=== PATIENT | female | born 1995 | race Caucasian/White ===

== ENCOUNTER 2018-07-15 21:08 | Observation (INO) ==
[2018-07-15] MEDS ORDERED: ALBUT/IPRATROP 3MG/0.5MG NEB 3 ML VIAL NEB STA (21:26)
[2018-07-15] MEDS ORDERED: BENZONATATE 100 MG CAPSULE PO ONE (22:04)
[2018-07-15] MEDS ORDERED: SODIUM CHLORIDE 0.9% 1000ML 1,000 ML IV SCH (22:15)
--- NOTE | 2018-07-15 22:16 | XRay Report ---
XR chest 1V portable HISTORY: cough COMPARISON: None. FINDINGS: The lungs are clear. Cardiac silhouette is normal in size. No pleural effusions. No pneumot horax. IMPRESSION: No acute process. Electronically signed by: John Hooker M.D. 07/15/2018 10:15 PM
--- NOTE | 2018-07-15 22:19 | Emergency Department Note ---
History of Present Illness General Chief complaint: Asthma Stated complaint: ASTHMA Time Seen by Provider: 07/15/18 21:19 History of Present Illness Maximum Pain Intensity: 6 This is a 22-year-old female with a history of asthma that presents to the emergency department via private vehicle with complaints of "asthma". The patient notes that for the past few days she has been experiencing increased cough and chest tightness. She was seen at [facility] yesterday and was given a rescue inhaler to use every 4 hours. She is also using Symbicort. Over the night she developed worsening symptoms therefore prompting a visit back to [facility] today. She was given a nebulizer. She is used it twice today. She notes that she is getting worse, now is a headache, nasal congestion and sore throat. Discomfort is worse when she lies flat. She denies any fevers, chills, history of clots. No recent long trips. She numerically rates the overall discomfort as a 6/10. Pt. notes her father has a hx of factor 5 and PE history and she is on control. Home Medications Home Medications Medication Instructions Recorded Confirmed Type albuterol sulfate 1.25 mg INHALATION QID PRN 07/15/18 07/15/18 History albuterol sulfate [Ventolin HFA] 2 puff INHALATION Q4 PRN 07/15/18 07/15/18 History budesonide-formoterol [Symbicort] 2 puff INHALATION BID 07/15/18 07/15/18 History norelgestromin-ethin.estradiol 1 patch TRANSDERMAL Q7D #0 ea 07/16/18 07/15/18 Rx [Xulane] oseltamivir 75 mg PO BID 5 Days #8 cap 07/16/18 Rx prednisone 10 mg PO UD #15 tab 07/16/18 Rx Allergies Allergy/AdvReac Type Severity Reaction Status Date / Time oats Allergy Swelling Verified 07/15/18 21:48 of the Eye sulfamethoxazole AdvReac Dizziness Verified 07/15/18 21:48 [From Bactrim] trimethoprim [From Bactrim] AdvReac Dizziness Verified 07/15/18 21:48 Past Med/Surg History Medical History Asthma Surgical History No pertinent past surgical history Social History Current Living Situation: Other Current Living Situation Comment: [facility] with 2 roommates Other Information That Helps Us Care for You: No Feels Safe at Home: Yes Safety Concerns: Feels Safe At This Time Smoking Status: Never smoker Hx Alcohol Use: Yes Alcohol type: wine Alcohol Intake Frequency: a few times a month Hx Substance Use: No Beliefs That Will Affect Care: None Preferred Language: Czech Review of Systems A total of 10 systems reviewed and were otherwise negative Physical Exam Vital Signs Vital Signs - 24 hr 07/16/18 02:10 07/16/18 03:01 07/16/18 03:22 Temperature 37.5 C Temperature Source Oral Pulse Rate 102 H Pulse Rate [Apical] 97 H 109 H Pulse Rate [Right Brachial] Pulse Rhythm [Apical] Regular Regular Pulse Strength [Apical] Normal Normal Respiratory Rate 16 18 18 Respiratory Effort / Characteristics Non-Labored Spontaneous Non-Labored Spontaneous Respiratory Depth Normal Normal Respiratory Pattern Regular Blood Pressure 132/82 Blood Pressure [Right Arm] 132/82 108/71 Blood Pressure Mean [Right Arm] 98 83 Blood Pressure Position [Right Arm] Lying Pulse Oximetry 98 98 96 Oxygen Delivery Method Room Air Room Air Room Air 07/16/18 07:35 07/16/18 08:45 07/16/18 15:00 Temperature 36.8 C 36.7 C Temperature Source Oral Oral Pulse Rate Pulse Rate [Apical] Pulse Rate [Right Brachial] 89 105 H Pulse Rhythm [Apical] Pulse Strength [Apical] Respiratory Rate 18 23 Respiratory Effort / Characteristics Non-Labored Respiratory Depth Normal Respiratory Pattern Regular Blood Pressure Blood Pressure [Right Arm] 121/84 120/80 Blood Pressure Mean [Right Arm] 96 93 Blood Pressure Position [Right Arm] Semi-fowlers Pulse Oximetry 99 98 Oxygen Delivery Method Room Air Room Air 07/16/18 15:41 Temperature 36.7 C Temperature Source Pulse Rate Pulse Rate [Apical] Pulse Rate [Right Brachial] 105 H Pulse Rhythm [Apical] Pulse Strength [Apical] Respiratory Rate 23 Respiratory Effort / Characteristics Respiratory Depth Respiratory Pattern Blood Pressure Blood Pressure [Right Arm] 120/80 Blood Pressure Mean [Right Arm] Blood Pressure Position [Right Arm] Pulse Oximetry 98 Oxygen Delivery Method VITAL SIGNS - Vital signs and nursing notes were reviewed. Patient is tachycardic upon arrival here. Otherwise vital signs are stable. GENERAL -22-year-old female appearing her stated age who is in no acute distress. She is not in the tripod position, and does not show any increased work of breathing. She is speaking in full sentences. Communicates well with provider and answers questions appropriately. SKIN - Without rashes. No meningeal or petechial rash. HEAD - NC/AT. EYES - PERRL with EOMI bilaterally. Sclera anicteric. Palpebral conjunctiva pink and moist with no injection noted. EARS - No deformities of external structures noted on gross examination bilaterally.External auditory canals without discharge or otorrhea. Tympanic membranes pearly garcia without retraction or bulging. No fluid or purulent material visualized behind the TM. Handle of malleus, umbo, cone of light, pars tensa/flaccid all easily visualized. NOSE - Midline and without cyanosis. No epistaxis or purulent drainage noted. Septum midline without deviation or septal hematoma noted. MOUTH/OROPHARYNX - Without perioral cyanosis. Buccal mucosa pink and moist and without leukoplakia. Tongue midline with equal elevation of palate bilaterally. No tonsillar hypertrophy, erythema, or exudates noted. Fair dentition noted. NECK - Neck with FROM. Supple to palpation. No lymphadenopathy noted. No nuchal rigidity. LUNGS - Chest wall symmetric without accessory muscle use, intercostals retractions, or central cyanosis. Normal vesicular breath sounds CTA B/L. No wheezes, rales, or rhonchi appreciated. CARDIAC - RRR with S1/S2. No murmur, rubs, or gallops appreciated. ABDOMEN - Abdominal contour normal without pulsations or visible masses. BS normoactive all four quadrants. No tenderness, palpable masses, hepatosplenomegaly, or ascites noted. EXTREMITIES - No clubbing or peripheral cyanosis. No pretibial edema present.+5/ 5 strength noted in UE/LE bilaterally. No calf tenderness. NEUROLOGIC - Cranial nerves II through XII grossly intact. PSYCH - A&Ox3 and cooperates fully with examiner. Pt is very pleasant and interacts well with examiner. Course Administered Medications Discontinued Medications Acetaminophen (Tylenol) 650 mg PO Q4H PRN PRN Reason: pain/fever Stop: 08/15/18 02:30 Last Admin: 07/16/18 03:58 Dose: 650 mg Albuterol (Duoneb) 3 ml NEB NOW STA Stop: 07/15/18 21:27 Last Admin: 07/15/18 21:35 Dose: 3 ml Benzonatate (Tessalon Perle) 100 mg PO NOW ONE Stop: 07/15/18 22:05 Last Admin: 07/15/18 22:38 Dose: 100 mg Budesonide/Formoterol Fumarate (Symbicort 80mcg/4.5mcg) 2 puffs INH BID MADDY Stop: 08/15/18 08:59 Last Admin: 07/16/18 08:48 Dose: 2 puffs Sodium Chloride (Nss 1000ml) 1,000 mls @ 999 mls/hr IV .Q1H1M MADDY Stop: 07/15/18 23:15 Last Infusion: 07/15/18 23:45 Dose: 0 mls/hr Admin: 07/15/18 22:38 Dose: 999 mls/hr Potassium Chloride (K Nick / Wtr) 10 meq in 100 mls @ 100 mls/hr IV ONE ONE Stop: 07/16/18 01:59 Last Infusion: 07/16/18 02:09 Dose: 0 mls/hr Admin: 07/16/18 01:05 Dose: 100 mls/hr Ioversol (Optiray 320 125ml) 125 ml IV ONCE PRN PRN Reason: Interaction Checking Stop: 07/20/18 00:00 Last Admin: 07/16/18 00:01 Dose: 96 ml Menthol (Nice) Confirm Administered Dose 24 niles BUCCAL .STK-MED ONE Stop: 07/16/18 03:58 Last Admin: 07/16/18 03:58 Dose: 24 niles Miscellaneous (Order Awaiting Action) 1 ea N/A QS MADDY Stop: 08/15/18 07:59 Last Admin: 07/16/18 09:00 Dose: Not Given Oseltamivir Phosphate (Tamiflu) 75 mg PO BID MADDY Stop: 07/21/18 04:38 Last Admin: 07/16/18 15:47 Dose: 75 mg Admin: 07/16/18 05:07 Dose: 75 mg Potassium Chloride (Klor-Con M10) 20 meq PO NOW STA Stop: 07/16/18 01:01 Last Admin: 07/16/18 01:04 Dose: 20 meq Medical Decision Making Laboratory Data Result diagrams: 07/15/18 22:20 07/16/18 08:11 Lab Results 07/15/18 07/15/18 07/15/18 Range/Units 22:20 22:20 22:20 WBC 6.09 (4.8-10.8) K/uL RBC 4.58 (4.2-5.4) M/uL Hgb 13.5 (12.0-16.0) g/dL Hct 40.1 (37-47) % MCV 87.6 (80-100) fL MCH 29.5 (25-34) pg MCHC 33.7 (32-36) g/dL RDW Std Deviation 41.9 (36.4-46.3) fL RDW Coeff of Ric 13.1 (11.5-14.5) % Plt Count 244 (130-400) K/uL MPV 9.4 (7.4-10.4) fL Immature Gran % (Auto) 0.2 % Neut % (Auto) 63.5 % Lymph % (Auto) 27.8 % Blanco % (Auto) 6.9 % Eos % (Auto) 1.3 % Baso % (Auto) 0.3 % Immature Gran # (Auto) 0.01 (0.00-0.02) K/uL Neut # (Auto) 3.87 (1.4-6.5) K/uL Lymph # (Auto) 1.69 (1.2-3.4) K/uL Blanco # (Auto) 0.42 (0.11-0.59) K/uL Eos # (Auto) 0.08 (0-0.5) K/uL Baso # (Auto) 0.02 (0-0.2) K/uL D-Dimer 710 H* (0-500) ug/L FEU Sodium 138 (136-145) mmol/L Potassium 3.0 L (3.5-5.1) mmol/L Chloride 105 (98-107) mmol/L Carbon Dioxide 27 (21-32) mmol/L Anion Gap 6.0 (3-11) BUN 7 (7-18) mg/dl Creatinine 0.73 (0.6-1.2) mg/dl Est Cr Clr Drug Dosing 125.9 ml/min Est GFR ( Amer) 137.4 Est GFR (Non-Af Amer) 118.6 BUN/Creatinine Ratio 9.1 L (10-20) Glucose 113 H (70-99) mg/dl Calcium 8.3 L (8.5-10.1) mg/dl Total Bilirubin 0.2 (0.2-1) mg/dl AST 11 L (15-37) U/L ALT 15 (12-78) U/L Alkaline Phosphatase 52 (45-117) U/L Troponin I < 0.015 (0-0.045) ng/ml Total Protein 7.1 (6.4-8.2) gm/dl Albumin 3.1 L (3.4-5.0) gm/dl Globulin 4.0 (2.5-4.0) gm/dl Albumin/Globulin Ratio 0.8 L (0.9-2) HCG, Qual (Negative) Influenza Type A Ag (Neg) Influenza Type B Ag (Neg) 07/15/18 07/15/18 07/16/18 Range/Units 22:20 22:20 08:11 WBC (4.8-10.8) K/uL RBC (4.2-5.4) M/uL Hgb (12.0-16.0) g/dL Hct (37-47) % MCV (80-100) fL MCH (25-34) pg MCHC (32-36) g/dL RDW Std Deviation (36.4-46.3) fL RDW Coeff of Ric (11.5-14.5) % Plt Count (130-400) K/uL MPV (7.4-10.4) fL Immature Gran % (Auto) % Neut % (Auto) % Lymph % (Auto) % Blanco % (Auto) % Eos % (Auto) % Baso % (Auto) % Immature Gran # (Auto) (0.00-0.02) K/uL Neut # (Auto) (1.4-6.5) K/uL Lymph # (Auto) (1.2-3.4) K/uL Blanco # (Auto) (0.11-0.59) K/uL Eos # (Auto) (0-0.5) K/uL Baso # (Auto) (0-0.2) K/uL D-Dimer (0-500) ug/L FEU Sodium 141 (136-145) mmol/L Potassium 3.2 L (3.5-5.1) mmol/L Chloride 106 (98-107) mmol/L Carbon Dioxide 29 (21-32) mmol/L Anion Gap 5.0 (3-11) BUN 5 L (7-18) mg/dl Creatinine 0.65 (0.6-1.2) mg/dl Est Cr Clr Drug Dosing 141.4 ml/min Est GFR ( Amer) 148.1 Est GFR (Non-Af Amer) 127.8 BUN/Creatinine Ratio 7.4 L (10-20) Glucose 97 (70-99) mg/dl Calcium 8.6 (8.5-10.1) mg/dl Total Bilirubin (0.2-1) mg/dl AST (15-37) U/L ALT (12-78) U/L Alkaline Phosphatase (45-117) U/L Troponin I (0-0.045) ng/ml Total Protein (6.4-8.2) gm/dl Albumin (3.4-5.0) gm/dl Globulin (2.5-4.0) gm/dl Albumin/Globulin Ratio (0.9-2) HCG, Qual Negative (Negative) Influenza Type A Ag Pos for Influ A A* (Neg) Influenza Type B Ag Neg for Influ B (Neg) Imaging Data Radiologist's Impression: XR chest 1V portable HISTORY: cough COMPARISON: None. FINDINGS: The lungs are clear. Cardiac silhouette is normal in size. No pleural effusions. No pneumothorax. IMPRESSION: No acute process. CTA CHEST: Breathing motion artifact limits evaluation of peripheral arteries. No central PE. Patchy lower density appearance, especially within the left lower lobe arteries , likely due to artifact. Query small filling defect/PE in left lower lobe subsegmental artery versus artifact. Series 4, image 98. Lungs are clear Anterior mediastinal soft tissue density likely thymus. Mild splenomegaly, partially visualized. Radiologist: Jose Bishop M.D. Study ready at 00:07 and initial results transmitted at 00:31 Critical Value Communications Clear Time Type Notes 07/16/18 00:27 Call Doctor Regarding Above results, called RHONDA Boss on 07/16 00: 27 (-05:00) US VENOUS BILATERAL LOWER EXTREMITIES: No DVT in bilateral lower extremities Radiologist: Jose Bishop M.D. Study ready at 02:11 and initial results transmitted at 02:28 Electronically signed by: John Hooker M.D. 07/15/2018 10:15 PM MDM Narrative Patient was seen and evaluated as above in room C8. Review was performed of nursing notes and vital signs. After obtaining a thorough history and physical examination the above work up was performed. She presents to us today with a cough. She is nontoxic on exam. She is tachycardic, but otherwise exhibits stable vital signs. Because of her tachycardia, decision was made to begin with a chest x-ray, rapid strep and nebulizer treatment. Persistence of symptoms noted. IV access was then established. Rapid strep and chest x-ray negative. CBC reveals no concerning leukocytosis or anemia. Patient's metabolic panel reveals hypokalemia at 3.0 (repleted orally and through IV here in ed), hypocalcemia at 8.3, negative troponin negative hCG but there is positive influenza A. This test came back at the same time as a positive d- dimer at 710. Unfortunately, the patient began with a cough first that has been worsening and she notes it is never been this bad with the asthma. Because of that the tachycardia a d-dimer was ordered. I do suspect much of this is all from the influenza, however given the patient's presentation and cough that began first and no fever do believe that pursuing a CT angio of the chest is warranted. This was thoroughly discussed with the patient to include benefit versus risk. We were in agreement the CT scan should be performed. Results of this as above. She was given Tessalon Perles for her cough. The CT as per stat rad does reveal breathing motion artifact with this questionable small filling defect versus artifact. The patient unfortunately does have a family history of PE, with her father having factor V Leiden and having a PE. She is also on control. She is also tachycardic despite fluids, no signs of increased work of breathing and afebrile. Although certainly all of her symptoms are likely from that of the flu, given the unique risk factors the patient displays and presentation do believe that further evaluation is warranted in the inpatient setting. Ultrasounds were obtained of the lower extremities. She may receive a repeat CT scan tomorrow. However further management will be deferred to the medicine team in the inpatient setting. It is felt that anticoagulation at this time should not be added pending further studies. I discussed these findings with the attending physician, as well as the hospitalist. I also discussed these with the overnight radiologist and our in-house radiologist. Please refer to further documentation regarding the patient's stay. Potassium was also ordered. I spoke to the patient's mother per her request and discussed all findings and recommendations. Case was discussed with the attending physician. In the evaluation and treatment of this patient the following differential diagnoses were entertained: Influenza, MN, PE, pericarditis, costochondritis, pneumonia, among others. Impression & Plan Influenza A, Cough, Acute hypokalemia, Abnormal chest CT Discharge Plan Visit Data *Final* Discharge Date/Time: 07/16/18 03:01 Chief Complaint: Asthma Stated Complaint: ASTHMA ED Provider: Waldemar Santos ED Midlevel Provider: Gera Juarez Discharge Problem: Influenza A, Cough, Acute hypokalemia, Abnormal chest CT Patient Disposition: Admitted As Inpatient Condition: Good Discharge Instructions Interventions: ED Discharge Assessment Last Done: 07/16/18 03:01
[2018-07-15 22:46] LABS: Basophils # (auto) 0.02 K/uL (0-0.2); Basophils % (auto) 0.3 %; Eosinophils # (auto) 0.08 K/uL (0-0.5); Eosinophils % (auto) 1.3 %; Hematocrit (blood only) 40.1 % (37-47); Hemoglobin 13.5 g/dL (12.0-16.0); Immature Granulocytes # (auto) 0.01 K/uL (0.00-0.02); Immature Granulocytes % (auto) 0.2 %; Lymphocytes # (auto) 1.69 K/uL (1.2-3.4); Lymphocytes % (auto) 27.8 %; Mean Corpuscular Hgb Conc 33.7 g/dL (32-36); Mean Corpuscular Volume 87.6 fL (80-100); Mean Platelet Volume 9.4 fL (7.4-10.4); Monocytes # (auto) 0.42 K/uL (0.11-0.59); Monocytes % (auto) 6.9 %; Neutrophils # (auto) 3.87 K/uL (1.4-6.5); Neutrophils % (auto) 63.5 %; Platelet Count 244 K/uL (130-400); RDW Coefficient of Variation 13.1 % (11.5-14.5); RDW Standard Deviation 41.9 fL (36.4-46.3); Red Blood Count 4.58 M/uL (4.2-5.4); White Blood Count 6.09 K/uL (4.8-10.8)
[2018-07-15 23:04] LABS: Alanine Aminotransferase 15 U/L (12-78); Albumin Level 3.1 gm/dl (3.4-5.0); Aspartate Aminotransferase 11 U/L (15-37); BUN Creatinine Ratio 9.1 (10-20); Blood Urea Nitrogen 7 mg/dl (7-18); Calcium 8.3 mg/dl (8.5-10.1); Carbon Dioxide 27 mmol/L (21-32); Chloride 105 mmol/L (98-107); Creatinine Clr Calc Pharmacy 125.9 ml/min; Est GFR (African American) 137.4; Est GFR (Non-African American) 118.6; Glucose 113 mg/dl (70-99); Sodium 138 mmol/L (136-145)
[2018-07-15 23:09] LABS: Albumin Globulin Ratio 0.8 (0.9-2); Alkaline Phosphatase 52 U/L (45-117); Bilirubin,Total 0.2 mg/dl (0.2-1); Total Protein 7.1 gm/dl (6.4-8.2); Troponin I < 0.015 ng/ml (0-0.045)
[2018-07-15 23:16] LABS: D Dimer 710 ug/L FEU (0-500)
[2018-07-15 23:24] LABS: Pregnancy Test, Serum Negative (Negative)
[2018-07-16] MEDS ORDERED: OPTIRAY 320 125ml IV PRN
[2018-07-16] MEDS ORDERED: POTASSIUM CHLORIDE / WTR 10 MEQ/100 ML PLCT IV ONE (01:00)
[2018-07-16] MEDS ORDERED: POTASSIUM CHLORIDE 10 MEQ TABCR PO STA (01:00)
[2018-07-16] MEDS ORDERED: MAGNESIUM HYDROXIDE SUSP 30 ML UDC PO PRN (02:31)
[2018-07-16] MEDS ORDERED: ALUMINUM/MAGNESIUM SUSP 30 ML UDC PO PRN (02:31)
[2018-07-16] MEDS ORDERED: POLYETHYLENE (MIRALAX) 17 GM PACK PO PRN (02:31)
[2018-07-16] MEDS ORDERED: ONDANSETRON INJ 2 MG/ML 2 ML VIAL IV PRN (02:31)
[2018-07-16] MEDS ORDERED: ACETAMINOPHEN 325 MG TAB PO PRN (02:31)
[2018-07-16] MEDS ORDERED: COUGH DROP (SUGAR FREE) LOZ 24 LOZ/1 BOX BUCCAL PRN (03:53)
[2018-07-16] MEDS ORDERED: COUGH DROP (SUGAR FREE) LOZ 24 LOZ/1 BOX BUCCAL ONE (03:57)
--- NOTE | 2018-07-16 04:44 | History & Physical Report ---
Date of Service July 16, 2018 Assessment & Plan (1) Influenza A: Place on Tamiflu 75 mg p.o. twice daily Present on Admission?: Yes (2) Asthma exacerbation: Improved with treatment in ED. Continue her usual outpatient regimen of Symbicort, albuterol HFA and albuterol nebulizers 4 times daily as needed Present on Admission?: Yes (3) Abnormal chest CT: Abnormal chest CT/family history of father with factor V Leiden/elevated d -dimer-- Radiology reading could not rule out pulmonary embolism in a segmental artery. Venous Dopplers have been ordered which are negative. Would not placed on anticoagulation at this time, as even if there is a clot there, is not likely causing her symptoms at this time. We will consult pulmonology. We will order a factor V Leiden. Present on Admission?: Yes (4) Elevated d-dimer: As above. Present on Admission?: Yes (5) Family history of factor V Leiden mutation: As above. Present on Admission?: Yes (6) Acute hypokalemia: Oral replacement given in the ED Present on Admission?: Yes History of Present Illness Chief Complaint: The patient presents to the emergency department with a few days of increasing cough and chest tightness, concerning for her previous asthma exacerbations. 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 She has been using her inhalers as directed, and did get a nebulizer for the first time today, tried using at home, without significant improvement in symptoms. She has not had any recent travels or sick exposures that she is aware of, other than being at the [employer].. Allergies Allergy/AdvReac Type Severity Reaction Status Date / Time oats Allergy Swelling Verified 07/15/18 21:48 of the Eye sulfamethoxazole AdvReac Dizziness Verified 07/15/18 21:48 [From Bactrim] trimethoprim [From Bactrim] AdvReac Dizziness Verified 07/15/18 21:48 Home Medications Home Medications Medication Instructions Recorded Confirmed Type albuterol sulfate 1.25 mg INHALATION QID PRN 07/15/18 07/15/18 History albuterol sulfate [Ventolin HFA] 2 puff INHALATION Q4 PRN 07/15/18 07/15/18 History budesonide-formoterol [Symbicort] 2 puff INHALATION BID 07/15/18 07/15/18 History norelgestromin-ethin.estradiol 1 patch TRANSDERMAL Q7D 07/15/18 07/15/18 History [Xulane] Past Med/Surg History Medical History Asthma Surgical History No pertinent past surgical history Social History Current Living Situation: Other Current Living Situation Comment: [facility] with 2 roommates Other Information That Helps Us Care for You: No Feels Safe at Home: Yes Safety Concerns: Feels Safe At This Time Smoking Status: Never smoker Hx Alcohol Use: Yes Alcohol type: wine Alcohol Intake Frequency: a few times a month Hx Substance Use: No Beliefs That Will Affect Care: None Preferred Language: [place]ill[place] Communication Ability: Effective [employer]crew[employer] Required: No Review of Systems The patient denies chest pain, palpitations, lower extremity swelling, sore throat, fevers, chills, sweats, nausea, vomiting, diarrhea , constipation, abdominal pain, pelvic pain, blood in urine or stool, dysuria, urinary frequency or urgency, lightheadedness, dizziness, headache, memory loss, loss of consciousness, rash, abnormal bruising or bleeding, imbalance, focal or generalized weakness, numbness or tingling in arms or legs, generalized arthralgias or myalgias, back or neck pain, or night sweats. The review of systems is otherwise negative other than for that already noted above, and at least 10 systems have been reviewed. Physical Exam 2 Vital Signs (Past 24 Hours): Last Vital Signs Temp 37.5 C 07/16/18 03:22 Pulse 109 H 07/16/18 03:22 Resp 18 07/16/18 03:22 BP 108/71 07/16/18 03:22 Pulse Ox 96 07/16/18 03:22 Physical Exam: The patient is awake, alert and oriented 3, well developed and well nourished, normocephalic and atraumatic, lying in bed and in no acute distress. HEENT--PERRL, EOMI, mucous membranes and oropharynx normal. Neck--supple. No JVD. No bruits. Thyroid normal, trachea midline, no adenopathy. Heart--normal S1 and S2. No murmurs, rubs or gallops. Lungs--a few scattered wheezes bilaterally. Abdomen--normal bowel sounds and soft. Nontender. Nondistended. Extremities--no cyanosis or clubbing. No edema. There are good distal pulses b/ l. Dermatologic--normal skin turgor, normal color, no abnormal lymph nodes, no rash. Neurologic--cranial nerves II through XII grossly intact. Rheumatologic--normal range of motion. Psychiatric--normal affect. Results & Data Laboratory Results Laboratory Results WBC 6.09 K/uL (4.8-10.8) 07/15/18 22:20 RBC 4.58 M/uL (4.2-5.4) 07/15/18 22:20 Hgb 13.5 g/dL (12.0-16.0) 07/15/18 22:20 Hct 40.1 % (37-47) 07/15/18 22:20 MCV 87.6 fL (80-100) 07/15/18 22:20 MCH 29.5 pg (25-34) 07/15/18 22:20 MCHC 33.7 g/dL (32-36) 07/15/18 22:20 RDW Std Deviation 41.9 fL (36.4-46.3) 07/15/18 22: RDW Coeff of Ric 13.1 % (11.5-14.5) 07/15/18 22: Plt Count 244 K/uL (130-400) 07/15/18 22:20 MPV 9.4 fL (7.4-10.4) 07/15/18 22:20 Immature Gran % (Auto) 0.2 % 07/15/18 22:20 Neut % (Auto) 63.5 % 07/15/18 22:20 Lymph % (Auto) 27.8 % 07/15/18 22:20 [place]ug[place] % (Auto) 6.9 % 07/15/18 22:20 Eos % (Auto) 1.3 % 07/15/18 22:20 Baso % (Auto) 0.3 % 07/15/18 22:20 Immature Gran # (Auto) 0.01 K/uL (0.00-0.02) 07/15/18 22:20 Neut # (Auto) 3.87 K/uL (1.4-6.5) 07/15/18 22:20 Lymph # (Auto) 1.69 K/uL (1.2-3.4) 07/15/18 22:20 [place]ug[place] # (Auto) 0.42 K/uL (0.11-0.59) 07/15/18 22:20 Eos # (Auto) 0.08 K/uL (0-0.5) 07/15/18 22:20 Baso # (Auto) 0.02 K/uL (0-0.2) 07/15/18 22:20 D-Dimer 710 ug/L FEU (0-500) H* 07/15/18 22:20 Sodium 138 mmol/L (136-145) 07/15/18 22:20 Potassium 3.0 mmol/L (3.5-5.1) L 07/15/18 22:20 Chloride 105 mmol/L (98-107) 07/15/18 22:20 Carbon Dioxide 27 mmol/L (21-32) 07/15/18 22:20 Anion Gap 6.0 (3-11) 07/15/18 22:20 BUN 7 mg/dl (7-18) 07/15/18 22:20 Creatinine 0.73 mg/dl (0.6-1.2) 07/15/18 22:20 Est Cr Clr Drug Dosing 125.9 ml/min 07/15/18 22:20 Est GFR ( Amer) 137.4 07/15/18 22:20 Est GFR (Non-Af Amer) 118.6 07/15/18 22:20 BUN/Creatinine Ratio 9.1 (10-20) L 07/15/18 22:20 Glucose 113 mg/dl (70-99) H 07/15/18 22:20 Calcium 8.3 mg/dl (8.5-10.1) L 07/15/18 22:20 Total Bilirubin 0.2 mg/dl (0.2-1) 07/15/18 22:20 AST 11 U/L (15-37) L 07/15/18 22:20 ALT 15 U/L (12-78) 07/15/18 22:20 Alkaline Phosphatase 52 U/L (45-117) 07/15/18 22:20 Troponin I < 0.015 ng/ml (0-0.045) 07/15/18 22:20 Total Protein 7.1 gm/dl (6.4-8.2) 07/15/18 22:20 Albumin 3.1 gm/dl (3.4-5.0) L 07/15/18 22:20 Globulin 4.0 gm/dl (2.5-4.0) 07/15/18 22:20 Albumin/Globulin Ratio 0.8 (0.9-2) L 07/15/18 22:20 HCG, Qual Negative (Negative) 07/15/18 22:20 Influenza Type A Ag Pos for Influ A (Neg) A* 07/15/18 22:20 Influenza Type B Ag Neg for Influ B (Neg) 07/15/18 22:20 Diagnostic Findings [place], [place] [phone] XRay Report Patient: ROLANDO SWEENEY AAdmit Date: 07/15/18 MR#: [id number] 2ND Acct ID:[id number]: Date: 1995[facility] Zip: [place] [address] Age: 22Location: ED Sex: F Room/Bed: Att Phy: Diagnosis: ASTHMA [facility]: [facility] Fam Phy: Interpreting Phy: Jonh Hooker MD Admit Phy: Ordering Phy: Gera Juarez PA-C cc: ~ XR chest 1V portable HISTORY: cough COMPARISON: None. FINDINGS: The lungs are clear. Cardiac silhouette is normal in size. No pleural effusions. No pneumothorax. IMPRESSION: No acute process. Electronically signed by: John Hooker M.D. 07/15/2018 10:15 PM Dictated: 07/15/182213 Transcribed: 07/15/182213 Medications Administered Home Medications Medication Instructions Recorded Confirmed albuterol sulfate 1.25 mg INHALATION QID PRN 07/15/18 07/15/18 albuterol sulfate [Ventolin HFA] 2 puff INHALATION Q4 PRN 07/15/18 07/15/18 budesonide-formoterol [Symbicort] 2 puff INHALATION BID 07/15/18 07/15/18 norelgestromin-ethin.estradiol 1 patch TRANSDERMAL Q7D 07/15/18 07/15/18 [Brandy] Code Status & VTE Plan Code Status Full code VTE Prophylaxis Plan VTE Prophylaxis will be ordered: Yes
[2018-07-16] MEDS: OSELTAMIVIR PHOSPHATE 75 MG CAP PO SCH ×2 (05:07→15:47)
--- NOTE | 2018-07-16 07:03 | Ultrasound Report ---
ULTRASOUND BILATERAL LOWER EXTREMITY VENOUS CLINICAL HISTORY: Dyspnea. Elevated D dimer. COMPARISON STUDY: No priors. TECHNIQUE: Real-time, grayscale, and color Doppler sonography of the deep veins of the right and left lower extremity was performed from the inguinal crease to the calf. Compression and augmentation wer e utilized. FINDINGS: There is no sonographic evidence of deep venous thrombosis identified in the right or left lower extremity. The common femoral, superficial femoral, and popliteal veins are patent and normally compressible bilaterally. The greater saphenous vein and the profunda femoris vein at the junction w ith the common femoral vein are clear in both legs. The visualized calf veins are patent bilaterally. IMPRESSION: There is no sonographic evidence of deep venous thrombosis identified in the right or lef t lower extremity. Electronically signed by: Hao Santos M.D. 07/16/2018 7:02 AM
--- NOTE | 2018-07-16 07:52 | CT Scan Report ---
CT angio chest PE protocol CT DOSE: 302.92 mGy.cm HISTORY: 22 years-old Female with cough, dypnea. Acute cough TECHNIQUE: Multiple CTA images of the chest were obtained after the intravenous administration of 96 ml Optiray 320. Coronal and sagittal MIPS were obtained from the axial data set and were submitted f or review. All measurements were obtained according to NASCET criteria. A dose lowering technique wa s utilized adhering to the principles of ALARA. COMPARISON: Chest radiograph 07/15/2018, duplex venous Doppler study 07/16/2018 FINDINGS: CTA: Heart is normal in size without pericardial effusion. Thoracic aorta is normal in course and caliber without aneurysm or dissection. The left vertebral artery originates directly from the aortic arch. T he pulmonary arterial tree is opacified to the level of the proximal subsegmental branches. Evaluatio n of the segmental and subsegmental branches is limited secondary to respiratory motion artifact. The re is apparent tiny filling defects noted within subsegmental branches of the basal left lower lobe ( for example image [address] CHEST: Thyroid is homogeneous. Residual thymic tissue about the anterior mediastinum. Mildly prominent subca rinal lymph nodes measuring up to 8 mm are likely reactive. No pneumothorax or pleural effusion. No focal airspace consolidation to suggest pneumonia. Mild bilat eral bronchial wall thickening. Spleen is mildly enlarged, 13.9 cm. No acute process about the imaged upper abdomen. The breast paren chyma and soft tissues appear unremarkable. The bones appear to be intact. No suspicious bone lesions identified. IMPRESSION: 1. Study is mildly degraded by respiratory motion artifact, specifically the segmental and subsegment al branches of the lung bases are suboptimally evaluated. Apparent tiny filling defects within segmen ralph and subsegmental branches of the left lower lobe as above are favored to be artifactual with tiny pulmonary emboli considered less likely. Clinical follow-up recommended. 2. Mild bilateral bronchial wall thickening suggests bronchitis or reactive airway disease. 3. No focal airspace consolidation to suggest pneumonia. The above report was generated using voice recognition software. It may contain grammatical, syntax o r spelling errors. Electronically signed by: Ugo Shaw M.D. 07/16/2018 7:50 AM
--- NOTE | 2018-07-16 08:00 | Hospitalist Progress Note ---
Date of Service July 16, 2018 Assessment & Plan (1) Influenza A: Place on Tamiflu 75 mg p.o. twice daily (2) Asthma exacerbation: Improved with treatment in ED. Continue her usual outpatient regimen of Symbicort, albuterol HFA and albuterol nebulizers 4 times daily as needed (3) Abnormal chest CT: Abnormal chest CT/family history of father with factor V Leiden/elevated d -dimer-- Radiology reading could not rule out pulmonary embolism in a segmental artery. Venous Dopplers have been ordered which are negative. Would not placed on anticoagulation at this time, as even if there is a clot there, is not likely causing her symptoms at this time. consult pulmonology. pending Factor V Leiden. (4) Elevated d-dimer: As above. (5) Family history of factor V Leiden mutation: As above. (6) Acute hypokalemia: Oral replacement given in the ED Physical Exam 2 Vital Signs (Past 24 Hours): Last Vital Signs Temp 36.8 C 07/16/18 07:35 Pulse 89 07/16/18 07:35 Resp 18 07/16/18 07:35 BP 121/84 07/16/18 07:35 Pulse Ox 99 07/16/18 07:35
[2018-07-16 08:51] LABS: BUN Creatinine Ratio 7.4 (10-20); Calcium 8.6 mg/dl (8.5-10.1); Creatinine Clr Calc Pharmacy 141.4 ml/min; Est GFR (African American) 148.1; Est GFR (Non-African American) 127.8; Potassium 3.2 mmol/L (3.5-5.1)
[2018-07-16] MEDS ORDERED: BUDESONIDE/FORMOTEROL FUMARATE 80/4.5 60 PUFFS/INHALER INH SCH (09:00)
[2018-07-16 15:17] VITALS: BP 120/80; PULSE 105; TEMP 98.1; O2SAT 98
--- NOTE | 2018-07-16 16:10 | Discharge Summary ---
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 She has been using her inhalers as directed, and did get a nebulizer for the first time today, tried using at home, without significant improvement in symptoms. She has not had any recent travels or sick exposures that she is aware of, other than [place] [employer] Principal Diagnosis Acute influenza A, asthma exacerbation Discharge Exam The patient appeared well nourished and normally developed. Vital signs as documented. Head exam is unremarkable. normocephalic, atraumatic Neck is without jugular venous distension, thyromegaly, or lymphademopathy Lungs are with coarse breath sounds no focal air loss no wheezes no egophony she does have a cough when taking deep breaths Cardiac exam reveals Rhythm is regular. First and second heart sounds normal. Abdominal exam reveals normal bowel sounds, no masses, no organomegaly Extremities are nonedematous and both pedal pulses are present no complaints of tenderness to exam Neurologic exam is A&Ox3, no focal deficits, strength is equal bilateral Psychologically seems neither anxious or depressed Skin is warm Dry without bruises or lesions Discharge Data Allergies Allergy/AdvReac Type Severity Reaction Status Date / Time oats Allergy Swelling Verified 07/15/18 21:48 of the Eye sulfamethoxazole AdvReac Dizziness Verified 07/15/18 21:48 [From Bactrim] trimethoprim [From Bactrim] AdvReac Dizziness Verified 07/15/18 21:48 Consultations 07/16/18 01:01 ED Decision to Admit Stat Ordered Studies 07/15/18 23:29 CT angio chest PE protocol Stat 07/16/18 01:00 US venous doppler [facility] Urgent Hospital Course (1) Influenza A: Place on Tamiflu 75 mg p.o. twice daily will complete course (2) Asthma exacerbation: Improved with treatment in ED. Continue her usual outpatient regimen of Symbicort, albuterol HFA and albuterol nebulizers 4 times daily as needed short course of steroids at home (3) Abnormal chest CT: Abnormal chest CT/family history of father with factor V Leiden/elevated d -dimer-- Radiology reading could not rule out pulmonary embolism in a segmental artery however they feel this is more of an artifact and a true DVT.. Venous Dopplers have been ordered which are negative. I discussed the case with Dr. rita valadez feels that given the small nature of this segmental or segmental branch possible pulmonary embolism and the fact that her d-dimer is not significant elevated this might be explained by just her influenzal illness. We will not proceed with formal anticoagulation. We did and I personally discussed with the patient and her family the fact that if her factor V Leiden does come back she could she should strongly consider not being on an estrogen-containing control medication. The patient and her mother states she has been on medication similar to this for many many years in the will probably prefer to stay on the medications because of extreme menstrual cramping unless that Leiden comes back positive. I also recommended the possibility of taking a baby aspirin a day but left it up to their choice pending Factor V Leiden. (4) Elevated d-dimer: As above. (5) Family history of factor V Leiden mutation: As above. Her father reportedly is heterozygous he takes an aspirin a day (6) Acute hypokalemia: Oral replacement given in the ED Total Time Total Time Spent Total Time Spent (In Minutes): greater than 30 minutes were required to prepare discharge Discharge Plan Discharge Items Patient Disposition: Home - Self-Care Reason For Visit: BRONCHOSPASM Discharge Diagnosis: influenza A, asthma Condition: Good Discharge Goals: Decrease discomfort, Diagnostic testing and Improve disease control Activity: As commented below Activity Comment: no intentional exercise until after check up at [facility] Non-emergency contact: Primary Care Provider Call non-emergency contact if: you have any medication questions Follow-up/Referrals: [facility] [Primary Care Provider] - Diet: Regular Addtl Provider Instructions: Please rest and recuperate, plenty of liquids follow up with [facility] Prescriptions: New oseltamivir 75 mg capsule 75 mg PO BID 5 Days Qty: 8 RF: 0 prednisone 10 mg tablet 10 mg PO UD Qty: 15 RF: 0 Continue albuterol sulfate [Ventolin HFA] 90 mcg/actuation Hfa Aerosol Inhaler 2 puff INHALATION Q4 PRN (Reason: Shortness Of Breath) RF: 0 budesonide-formoterol [Symbicort] 80-4.5 mcg/actuation Hfa Aerosol Inhaler 2 puff INHALATION BID RF: 0 albuterol sulfate 1.25 mg/3 mL Solution For Nebulization 1.25 mg INHALATION QID PRN (Reason: Shortness Of Breath Or Wheezing) RF: 0 norelgestromin-ethin.estradiol [Xulane] 150-35 mcg/24 hr Patch Weekly 1 patch TRANSDERMAL Q7D Qty: 0 RF: 0 Stand-Alone Forms: [facility] Discharge Orders: Discharge Order (Routine); Ordered 07/16/18 Ordered By: Destin Crowell Admission Data Admit Date/Time: 07/16/18 02:31 Attending Provider: Destin Crowell Admit Provider: Zeeshan Madden Primary Care Provider: [facility] Other Providers: Zeeshan Madden Service: Medical Other Interventions: Discharge Summary Assessment (RN) Last Done: 07/16/18 15:41
== END 2018-07-16 16:10 | disposition home or self-care (01) ==
LOC: ED 21:08 → 4E 21:08 → SUATTDRO 07-16 02:31 → 4E 07-16 03:01